=== PATIENT | female | born 1960 | race Caucasian/White ===

== ENCOUNTER 2020-07-20 17:44 | Emergency (ER) | payer OTHER ==
[~2020-07-20] VITALS: Ht 157.5 cm; Wt 63.5 kg
[2020-07-20] MEDS ORDERED: NORCO 5-325 TA1 EAC2 PO (18:40)
[2020-07-20 19:24] VITALS: BP 144/79
== END 2020-07-20 19:24 | disposition home or self-care (01) ==
LOC: M.ERS 17:44
DX: S01.81XA Laceration without foreign body of other part of head, initial encounter (principal); J45.909 Unspecified asthma, uncomplicated; Y08.89XA Assault by other specified means, initial encounter; Y93.89 Activity, other specified; Y92.89 Other specified places as the place of occurrence of the external cause; Y99.8 Other external cause status